=== PATIENT | male | born 1995 | race Native Hawaiian/Other Pacific Islander ===

== ENCOUNTER 2018-08-13 09:54 | Outpatient (CLI) | payer OTHER | END 2018-08-13 19:16 | disposition home or self-care (01) | LOC: US 09:54 | DX: R22.9 Localized swelling, mass and lump, unspecified (principal) ==

== ENCOUNTER 2018-12-23 15:44 | Outpatient (CLI) | payer OTHER | END 2018-12-23 23:28 | disposition home or self-care (01) | LOC: RAD 15:44 | DX: R07.9 Chest pain, unspecified (principal) ==

== ENCOUNTER 2019-01-15 07:52 | Day surgery (SDC) | payer OTHER ==
[~2019-01-15] VITALS: Ht 2.5 cm; Wt 0.0 kg
[2019-01-15 08:30] LABS: PLATELET COUNT 182 K/uL (142-355)
[2019-01-15 08:39] LABS: POTASSIUM 3.6 mmol/L (3.6-5.2)
== END 2019-01-15 13:30 | disposition home or self-care (01) ==
LOC: OR 07:52
PROVIDERS: Student in an Organized Health Care Education/Training Program
PROC: 07B60ZZ Excision of Left Axillary Lymphatic, Open Approach (ICD-10-PCS; principal; 2019-01-15)
PROC: [UNRECOGNIZED PROCEDURE] (2019-01-15)
DX: R59.0 Localized enlarged lymph nodes (principal)
CPT/HCPCS: 80053; 85027; J0132; J0690; J1170; J2001; J2250; J2405; J2704; J3010; J3490

== ENCOUNTER 2019-03-05 12:44 | Outpatient (CLI) | payer OTHER | END 2019-03-05 21:37 | disposition home or self-care (01) | LOC: US 12:44 | DX: R22.32 Localized swelling, mass and lump, left upper limb (principal) ==

== ENCOUNTER 2019-06-03 14:23 | Emergency (ER) | payer OTHER ==
[~2019-06-03] VITALS: Ht 167.6 cm; Wt 60.8 kg
[2019-06-03 14:30] VITALS: BP 138/75
[2019-06-03 15:15] LABS: PLATELET COUNT 184 K/uL (142-355)
[2019-06-03 15:22] LABS: POTASSIUM 3.7 mmol/L (3.6-5.2)
[2019-06-03 15:48] VITALS: TEMP 99.9
== END 2019-06-03 16:06 | disposition home or self-care (01) ==
LOC: ED 14:23
PROVIDERS: Family Medicine
DX: J06.9 Acute upper respiratory infection, unspecified (principal); R50.9 Fever, unspecified; R05 Cough
CPT/HCPCS: 80053; 81000; 85027; 87502; 99283

== ENCOUNTER 2019-06-05 10:40 | Outpatient (CLI) | payer OTHER ==
[2019-06-05 11:42] LABS: PLATELET COUNT 214 K/uL (142-355)
== END 2019-06-05 19:52 | disposition home or self-care (01) ==
LOC: LABW 10:40
PROVIDERS: Nurse Practitioner Family
DX: R06.02 Shortness of breath (principal); R05 Cough; R07.89 Other chest pain; R53.83 Other fatigue
CPT/HCPCS: 36415; 82607; 82746; 84443; 85027; 85379